=== PATIENT | male | born 1945 | race Two or more races ===

== ENCOUNTER → 2025-03-04 | Outpatient (CLI) | payer MEDICARE, MEDICAID, SELFPAY ==
[2025-03-04 08:46] LABS: Glucose Estimated Average 189 mg/dL (80-131); Hemoglobin A1C 8.2 % Hgb (4.8-6.0)
[2025-03-04 08:47] LABS: Basophils # (Auto) 0.1 Thou/mm3 (0.0-0.2); Basophils % (Auto) 1 % (0-2.5); Eosinophils # (Auto) 0.1 Thou/mm3 (0.0-0.5); Eosinophils % (Auto) 2 % (0-10); Hematocrit 35.6 % (41.0-53.0); Hemoglobin 11.3 g/dL (13.5-16.0); Immature Granulocytes % (Auto) 0 % (0-0); Immature Granulocytes Auto 0.01 Thou/mm3 (0.00-0.00); Lymphocytes # (Auto) 2.7 Thou/mm3 (1.0-4.8); Lymphocytes % (Auto) 33 % (10-50); Mean Corpuscular HGB Conc 31.7 g/dl (31.0-37.0); Mean Corpuscular Hemoglobin 25.5 pg (25.0-35.0); Mean Corpuscular Volume 80 fL (80-100); Monocytes # (Auto) 0.7 Thou/mm3 (0.0-0.8); Monocytes % (Auto) 8 % (0-12); Neutrophils # (Auto) 4.6 Thou/mm3 (1.8-7.7); Neutrophils % (Auto) 57 % (37-80); Nucleated Red Blood Cell % 0 /100 WBC (0); Platelet Count 323 Thou/mm3 (140-440); RDW Standard Deviation 53.9 fL (35.1-43.9); Red Blood Count 4.43 Miln/mm3 (4.50-5.90); White Blood Count 8.1 Thou/mm3 (3.8-10.6)
[2025-03-04 08:56] LABS: Prostate Specific Antigen 0.67 ng/mL (0-4.00)
[2025-03-04 09:13] LABS: Anion Gap 9 (7-16); BUN/Creatinine Ratio 15 Ratio (12-20); Blood Urea Nitrogen 16 mg/dL (9-23); Calcium 8.8 mg/dL (8.3-10.6); Carbon Dioxide 27.6 mMol/L (20.0-31.0); Chloride 107 mMol/L (98-107); Creatinine (Component) 1.1 mg/dL (0.6-1.3); Glucose 165 mg/dL (74-106); Osmolality,Calculated 292 (275-295); Potassium 4.3 mMol/L (3.4-5.1); Sodium 144 mMol/L (136-145); eGFR > 60 See Note
[2025-03-04 11:06] LABS: Creatinine MALB Rnd Ur 81 mg/dL (30-125); Microalbumin Creat Ratio 19 mg/gCrea (<30); Microalbumin, Random Urine 15 mg/L (0-300)
== END | disposition home or self-care (01) ==
LOC: COPL 07:13
PROVIDERS: PCP Family Medicine; Referring Provider Family Medicine; Visit Provider Family Medicine
DX: N40.0 Benign prostatic hyperplasia without lower urinary tract symptoms (principal); D50.9 Iron deficiency anemia, unspecified; E11.65 Type 2 diabetes mellitus with hyperglycemia
CPT/HCPCS: 36415; 80048; 82043; 82570; 83036; 84153; 85025